=== PATIENT | male | born 1945 | race Caucasian/White ===

== ENCOUNTER 2020-01-23 16:44 | Emergency (ER) | payer OTHER, SELFPAY ==
[2020-01-23] VITALS (9 sets, daily range): BP systolic 100–152; BP diastolic 71–103; PULSE 117–138; RESP 16–25; TEMP 36.6; O2SAT 86–100
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
[2020-01-23 17:13] LABS: Basophils Percent Auto 0.4 % (0.2-1.2); Eosinophils Absolute Auto 0.1 K/mm3 (0-0.3); Eosinophils Percent Auto 0.6 % (0-4.4); Hematocrit 33.7 % (42.0-52.0); Hemoglobin 11.2 g/dL (14.0-18.0); Immature Granulocyte Absolute 0.16 K/mm3 (0.00-0.031); Immature Granulocyte Percent A 1.7 % (0-0.5); Lymphocytes Absolute Auto 2.21 K/mm3 (0.9-3.2); Lymphocytes Percent Auto 23.6 % (18.3-44.2); Mean Corpuscular HGB Conc 33.2 g/dl (32-36); Mean Corpuscular Hemoglobin 34.3 pg (26-34); Mean Corpuscular Volume 103.1 fl (80-100); Mean Platelet Volume 9.1 fl (7.4-10.4); Monocytes Absolute Auto 0.5 K/mm3 (0.1-0.6); Neutrophils Absolute Auto 6.4 K/mm3 (1.3-6.7); Neutrophils Percent Auto 68.7 % (45.5-73.1); Platelet Count Result 234 k/mm3 (150-375); Red Blood Count 3.27 M/mm3 (4.6-6.20); White Blood Count 9.4 K/mm3 (4.5-10.0)
--- NOTE | 2020-01-23 17:14 | ECG_ITS ---
Measurements Intervals [place] Rate: 112 P: 71 WV: 150 QRS: -54 QRSD: 87 T: 78 QT: 299 QTc: 409 Interpretive Statements SINUS TACHYCARDIA LEFT ANTERIOR FASCICULAR BLOCK ABNORMAL ECG Electronically Signed On 01-24-2020 8:17:19 [facility] [employer] by Nikhil العلي D.O.
[2020-01-23 17:23] LABS: Partial Thromboplastin Time 26.3 SECONDS (22.3-36.8)
[2020-01-23 17:26] LABS: Alanine Aminotransferase 36 U/L (4-50); Albumin Level 3.8 g/dL (3.5-5.1); Alkaline Phosphatase 63 U/L (38-126); Anion Gap 7 mmol/L (8-16); Aspartate Amino Transferase 77 U/L (17-59); Bilirubin,Total 0.3 mg/dL (0.2-1.3); Blood Urea Nitrogen 19 mg/dL (9-20); Calcium 8.1 mg/dL (8.4-10.2); Carbon Dioxide 28 mmol/L (22-30); Chloride 106 mmol/L (98-107); Estimated CRCL calculation 42 ml/min; Estimated Glomerular Filt Rate > 60; Glucose 212 mg/dL (75-110); Potassium 3.8 mmol/L (3.4-5.0); Sodium 141 mmol/L (137-145)
[2020-01-23] MEDS: SODIUM CHLORIDE 0.9% IV 1,000 ML 999 ML IV CONT (17:56)
[2020-01-23] MEDS: ONDANSETRON INJ 4 MG/2 ML VIAL (17:56)
--- NOTE | 2020-01-23 18:33 | PC.NURSE ---
report to kim osorio at [facility]
== END 2020-01-23 18:25 | disposition short-term general hospital (02) ==
PROVIDERS: Emergency Provider Emergency Medicine
DX: S06.5X0A Traumatic subdural hemorrhage without loss of consciousness, initial encounter (principal); S27.0XXA Traumatic pneumothorax, initial encounter; S40.022A Contusion of left upper arm, initial encounter; S20.212A Contusion of left front wall of thorax, initial encounter; V43.52XA Car driver injured in collision with other type car in traffic accident, initial encounter
CPT/HCPCS: 36415; 70450; 71045; 72125; 72170; 80053; 85025; 85610; 85730; 93005; 96374; 99291; J2405; J7030

== ENCOUNTER 2023-06-17 16:52 | Emergency (ER) | payer OTHER, SELFPAY ==
--- NOTE | ~2023-06-17 | CT_ITS ---
EXAMINATION: CT brain wo con DATE: 06/17/2023 17:27 INDICATION: Parkinson's presenting after fall down stairs with head injury. TECHNIQUE: Computed tomography (CT) of the head was performed without intravenous contrast. Sagittal and coronal reconstructions were performed. The mA was adjusted according to patient size. Iterative reconstruction technique was employed. The dose-length product was 681.00 mGy-cm. COMPARISON: None FINDINGS: Small left frontal scalp hematoma. No fracture. No acute intracranial hemorrhage, acute infarction or abnormal extra axial fluid collection. There is moderate scattered white matter hypoattenuation cons istent with chronic small vessel ischemic disease. Symmetric prominence of the sulci and ventricles c onsistent with moderate age-appropriate diffuse cerebral volume loss. No mass/mass effect. The orbits , paranasal sinuses and mastoid air cells are normal. IMPRESSION: 1. No fracture or acute intracranial process. 2. Age-related changes including moderate diffuse volume loss and moderate scattered white matter hyp oattenuation consistent with chronic small vessel ischemic disease. Reviewed, dictated and finalized at location A. IMPRESSION: 1. No fracture or acute intracranial process. 2. Age-related changes including moderate diffuse volume loss and moderate scat tered white matter hypoattenuation consistent with chronic small vessel ischemi c disease.
--- NOTE | ~2023-06-17 | CT_ITS ---
EXAMINATION: CT cervical spine wo con DATE: 06/17/2023 17:28 INDICATION: Consistencies disease post fall down stairs with head injury TECHNIQUE: Computed tomography (CT) of the cervical spine was performed without intravenous contrast. Automated exposure control and iterative reconstruction technique were employed. The dose-length pro duct was 113.72 mGy-cm. COMPARISON: None FINDINGS: Mild cervical levocurvature. Sagittal alignment is normal. Vertebral body heights are normal. There i s an acute minimally displaced fracture of the posterior right first rib. Old healed fracture of the posterior left first rib. Vertebral body heights are normal. No acute fractures in the cervical spine . There is solid osseous fusion across the right C7-T1 and T3-T4 facet joints. Again seen are lucent hemangiomas in the C5 vertebral body as well as in the T3 vertebral body extending into the left post erior elements. Mild disc height loss at C5-C6. Uncovertebral osteoarthritis, moderate on the left an d severe on the right at C3-C4. There is additional mild multilevel cervical uncovertebral osteoarthr itis. There is also multilevel cervical facet osteoarthritis, severe on the right at C2-C3, C4-C5 and T1-T2 and on the left at C3-C4 with mild to moderate facet osteoarthritis at the remaining levels. T here is mild neural foraminal stenosis on the left at C3-C4 and C4-C5. Minimal neural from stenosis a t a few additional levels on both the left and right. No significant central canal stenosis. Visualiz ed apices of lungs are clear. No evident pneumothorax. IMPRESSION: 1. Acute appearing nondisplaced fracture of the posterior right first rib. No evident pneumothorax an d visualized upper lungs. 2. Mild cervical spondylosis without acute osseous abnormality . Reviewed, dictated and finalized at location A. IMPRESSION: 1. Acute appearing nondisplaced fracture of the posterior right first rib. No e vident pneumothorax and visualized upper lungs. 2. Mild cervical spondylosis without acute osseous abnormality .
--- NOTE | ~2023-06-17 | XR_ITS ---
EXAMINATION: [id number] DATE: 06/17/2023 18:13 INDICATION: Parkinson's disease post fall down stairs TECHNIQUE: A frontal inspiratory view of the chest and 3 views of the right ribs were obtained. COMPARISON: Cervical spine CT dated 06/17/2023 FINDINGS: Suggestion of a possible nondisplaced fracture at the anterior right sixth rib. The previous noted no ndisplaced fracture of the posterior right first rib is is not clearly profiled on the provided radio graphs. No other acute rib fractures identified. Old fracture deformity at the posterior left first r ib. No focal airspace opacities, pulmonary edema, pleural effusion or pneumothorax. Heart size is nor mal. Tortuous thoracic aorta. IMPRESSION: 1. Nondisplaced posterior right first rib fracture better appreciated on prior cervical spine CT with possible fracture of the anterior right sixth rib. Correlate for point tenderness at this location. 2. No pneumothorax, pleural effusion or other acute cardiopulmonary disease. Reviewed, dictated and finalized at location A. IMPRESSION: 1. Nondisplaced posterior right first rib fracture better appreciated on prior cervical spine CT with possible fracture of the anterior right sixth rib. Corre late for point tenderness at this location. 2. No pneumothorax, pleural effusion or other acute cardiopulmonary disease.
[2023-06-17 16:56] VITALS: BP 194/166; PULSE 105; RESP 20; TEMP 36.6; O2SAT 97
--- NOTE | 2023-06-17 18:03 | ED.GENADULT ---
HPI - General Adult General Chief complaint: Head Injury Stated complaint: fall Time Seen by Provider: 06/17/23 16:54 History of Present Illness HPI narrative: Patient is a 77-year-old male who presents ER after a fall at home. He fell down approximately 6 stairs. Unknown LOC. Patient only somewhat verbal due to his Parkinson's disease. Unknown last tetanus. Patient with obvious trauma on lacerations left scalp/ face. No tenderness over the spine. No extremity injury or pain. No deformity. Related Data Allergies Allergy/AdvReac Type Severity Reaction Status Date / Time No Known Allergies Allergy Unverified 07/02/20 14:50 Review of Systems Review of Systems: ROS unobtainable: Yes unobtainable due to mental status PMFSH Past Medical History Medical History (Updated 06/17/23 @ 19:18 by Raúl Bernal MD) Encounter for general adult medical examination with abnormal findings Encounter for screening for other metabolic disorders Mild cognitive impairment Parkinsons disease Patient denies significant medical history Screen for colon cancer Screening, iron deficiency anemia Screening, lipid Social History Social History Smoking status: Never smoker Second hand tobacco smoke exposure: No Alcohol intake: never Exam Narrative: GENERAL: Chronically ill-appearing, well-nourished, and in no acute distress. HEAD: Normocephalic, 4.5 cm left forehead laceration, 4 cm posterior left scalp laceration. EYES: PERRL and EOMI. Two small lacerations infraorbital region 1 near the medial canthus but does not violate the canthus of or the lower lid it is a 0.5 cm, laterally there is a similar laceration that is 0.5 cm as well. ENT: Mucous membranes moist. NECK: Supple. no midline tenderness of C-spine CHEST: Clear to auscultation. No respiratory distress. HEART: Regular rate and rhythm. Normal peripheral pulses. ABDOMEN: Soft, nontender, nondistended. back: No midline tenderness the T/L spine. No paraspinal muscle tenderness. No bruises or abrasions to the back. EXTREMITIES: Normal range of motion. No edema. SKIN: Warm, dry, no rash. NEURO: Resting tremor. patient awake alert and acting at normal baseline according to family. Course Course Emergency Course: Patient resting comfortably. Tolerated repair. Educated patient's and friend on rib fracture. Will give pain medication for home. Patient ambulated to bathroom with 1 person assist which family is comfortable performing home. Vital Signs Vital signs: Vital Signs Temperature 97.8 F 06/17/23 16:56 Pulse Rate 105 H 06/17/23 16:56 Respiratory Rate 20 06/17/23 16:56 Blood Pressure 194/166 H 06/17/23 16:56 Pulse Oximetry 97 06/17/23 16:56 Oxygen Delivery Room Air 06/17/23 16:56 Temperature 97.8 F 06/17/23 16:56 Pulse Rate 98 06/17/23 18:16 Respiratory Rate 16 06/17/23 18:16 Blood Pressure 156/94 H 06/17/23 18:16 Pulse Oximetry 83 L 06/17/23 18:16 Oxygen Delivery Room Air 06/17/23 16:56 Procedures Laceration Laceration 1: Site: scalp Size (cm): 4 Description: linear Depth: simple, single layer Pre-repair: wound explored and irrigated extensively ====== Skin Level ====== Skin layer closed with: tony Number of sutures: 6 ====== Subcutaneous Layer ====== ====== Muscle Layer ====== ====== Tendon Layer ====== Laceration 2: Site: face Side (If applicable): left Size (cm): 4.5 Description: linear Depth: simple, single layer Local Anesthetic: lidocaine 1% and with epi Amount of anesthesia used (mL): 3 Pre-repair: wound explored and irrigated extensively ====== Skin Level ====== Skin layer closed with: nylon Size (cm): 5-0 Number of sutures: 8 Technique: simple, interrupted =
[2023-06-17 18:14] VITALS: BP 155/120; PULSE 99; RESP 18; O2SAT 71
[2023-06-17 18:16] VITALS: BP 156/94; PULSE 98; RESP 16; O2SAT 100
[2023-06-17] MEDS: HYDROcodone/acetaminophen (*CRX) 5-325 MG TABLET 1 TAB PO (18:43)
== END 2023-06-17 19:29 | disposition home or self-care (01) ==
PROVIDERS: Emergency Provider Emergency Medicine; PCP Family Medicine
DX: S01.81XA Laceration without foreign body of other part of head, initial encounter (principal); S01.01XA Laceration without foreign body of scalp, initial encounter; S01.112A Laceration without foreign body of left eyelid and periocular area, initial encounter; S22.31XA Fracture of one rib, right side, initial encounter for closed fracture; G20.A1 Parkinson's disease without dyskinesia, without mention of fluctuations; G31.84 Mild cognitive impairment of uncertain or unknown etiology; W10.9XXA Fall (on) (from) unspecified stairs and steps, initial encounter
CPT/HCPCS: 12002; 12013; 70450; 71101; 72125; 99284; A9270